=== PATIENT | male | born 1985 | race Caucasian/White ===

== ENCOUNTER 2016-08-10 03:50 | Emergency (ER) | payer OTHER ==
[2016-08-10 03:55] VITALS: BP 155/89
[2016-08-10] MEDS ORDERED: Ibuprofen TAB* 600 MG PO ONE (04:01)
--- NOTE | 2016-08-10 04:59 | ED ---
Yoandy Pal Matthew, scribed for [email or web address] on 08/10/16 at 0415 . Upper Extremity Pain - HPI Summary HPI Summary: A 31 y/o male presents to the ED with constant, gradually worsening right shoulder pain since 22:30 last night. The pain is rated 5/10 in severity. The patient states that he was helping a heavy set person off of the ground, when he heard a pop in his right shoulder. The patient did not have pain immediately. - History of Current Complaint Chief Complaint: EDExtremityUpper Stated Complaint: RT SHOULDER INJURY Time Seen by Provider: 08/10/16 03:57 Hx Obtained From: Patient Onset/Duration: Started Hours Ago, Traumatic, Still Present Timing: Constant Severity Currently: Moderate Pain Location: Shoulder - RT Associated Signs & Symptoms: Positive: Negative - Allergies/Home Medications Allergies/Adverse Reactions: Allergies Allergy/AdvReac Type Severity Reaction Status Date / Time No Known Allergies Allergy Verified 08/10/16 03:55 PMH/Surg Hx/FS Hx/Imm Hx Previously Healthy: Yes Endocrine/Hematology History: Denies: Hx Diabetes Infectious Disease History: No Infectious Disease History: Denies: Traveled Outside the [place] in Last 30 Days - Family History Known Family History: Negative: Hypertension, Diabetes - Social History Alcohol Use: None Hx Substance Use: No Hx Tobacco Use: No Review of Systems Constitutional: Negative Eyes: Negative ENT: Negative Cardiovascular: Negative Respiratory: Negative Gastrointestinal: Negative Genitourinary: Negative Positive: Myalgia - RT shoulder pain Skin: Negative Neurological: Negative Psychological: Normal All Other Systems Reviewed And Are Negative: Yes Physical Exam Triage Information Reviewed: Yes Vital Signs On Initial Exam: Initial Vitals Temp Pulse Resp BP Pulse Ox 97.1 F 70 15 155/89 98 08/10/16 03:54 08/10/16 03:54 08/10/16 03:54 08/10/16 03:54 08/10/16 03:54 Vital Signs Reviewed: Yes Appearance: Positive: Well-Appearing, No Pain Distress Skin: Positive: Warm, Skin Color Reflects Adequate Perfusion, Dry Head/Face: Positive: Normal Head/Face Inspection Eyes: Positive: EOMI, BARB ENT: Positive: Normal ENT inspection Neck: Positive: Supple, Nontender Respiratory/Lung Sounds: Positive: Clear to Auscultation, Breath Sounds Present Cardiovascular: Positive: RRR, Pulses are Symmetrical in both Upper and Lower Extremities Abdomen Description: Positive: Nontender, Soft Bowel Sounds: Positive: Present Musculoskeletal: Positive: Other - tenderness over the right shoulder, mildly restricted ROM, no neurovascular deficits noted. Neurological: Positive: Normal, Sensory/Motor Intact, Alert, Oriented to Person Place, Time Psychiatric: Positive: Affect/Mood Appropriate Diagnostics - Vital Signs Vital Signs Temp Pulse Resp BP Pulse Ox 08/10/16 03:54 97.1 F 70 15 155/89 98 - Laboratory Lab Statement: Any lab studies that have been ordered have been reviewed, and results considered in the medical decision making process. - Radiology RT Shoulder XR Xray Interpretation: No Acute Changes Radiology Interpretation Completed By: ED Physician Course/Dx - Course Assessment/Plan: A 31 y/o male presents to the ED with constant, gradually worsening right shoulder pain since 22:30 last night. The pain is rated 5/10 in severity. The patient states that he was helping a heavy set person off of the ground, when he heard a pop in his right shoulder. The patient did not have pain immediately. Shoulder XR was negative. He will be discharged home to follow -up with orthopedics. - Diagnoses Provider Diagnoses: Sprain of right shoulder Discharge - Discharge Plan Condition: Stable Disposition: HOME Prescriptions: Ibuprofen TAB* [Motrin TAB* 600 MG] 600 mg PO Q8H PRN #20 tab PRN Reason: Pain Patient Education Materials: Ibuprofen (By mouth), Shoulder Sprain (ED) Forms: *Work Release Referrals: Elias Acosta MD [Medical Doctor] - 2 Days Additional Instructions: Please follow-up with Dr. Acosta. The documentation as recorded by the Yoandy franco Matthew accurately reflects the service I personally performed and the decisions made by Neil aragon Emmanuel.
--- NOTE | 2016-08-10 08:25 | RAD ---
INDICATION: Right shoulder pain COMPARISON: None TECHNIQUE: Routine frontal and Y views were obtained. FINDINGS: The bony structures, joint spaces, and soft tissues are normal for age. IMPRESSION: NEGATIVE EXAMINATION.
== END 2016-08-10 04:50 | disposition home or self-care (01) ==
LOC: ED 03:50
DX: S43.491A Other sprain of right shoulder joint, initial encounter (principal); M25.511 Pain in right shoulder; X58.XXXA Exposure to other specified factors, initial encounter; Y93.9 Activity, unspecified; Y92.9 Unspecified place or not applicable
CPT/HCPCS: 99282; A9270-GY